=== PATIENT | female | born 1990 | race Caucasian/White ===

== ENCOUNTER 2020-11-25 12:52 | Emergency (ER) | payer MEDICAID ==
[~2020-11-25] VITALS: Ht 157.5 cm; Wt 69.9 kg
--- NOTE | 2020-11-25 13:05 | NUR ---
EMT AT BEDSIDE FOR EKG.
[2020-11-25] MEDS ORDERED: IBUP-1957 PO (13:25)
--- NOTE | 2020-11-25 13:53 | NUR ---
Patient a/ox4, breathing even and unlabored, nos ob noted. Needs attended. Ambulatory withs teady gait. EKG result provided to patient. Patient discharged to home in stable condition. Written and verbal after care instructions given. Patient verbalizes understanding of instruction.
[2020-11-25 13:54] VITALS: BP 129/78
== END 2020-11-25 13:54 | disposition home or self-care (01) ==
LOC: ER 12:52
DX: R07.89 Other chest pain (principal); Z79.899 Other long term (current) drug therapy
CPT/HCPCS: 71045-TC